=== PATIENT | female | born 1935 | race Caucasian/White ===

== ENCOUNTER 2016-10-20 11:00 | Inpatient (IN) | payer MEDICARE, OTHER ==
[~2016-10-20] VITALS: Ht 165.1 cm; Wt 97.4 kg
--- NOTE | ~2016-10-20 | OR ---
PATIENT'S NAME: TIFFANI FABIAN [facility] AGE: 81 Y [address] ROOM: [place] [address] LOCATION: [facility] ADMIT DATE: 11/03/2016 OR/Procedure Report DISCHARGE DATE: FAMILY PHYSICIAN: Nico Jennings MD ATTENDING PHYSICIAN: JULIO JONES SURGEON: Julio Jones MD SYSTEMS QA ANALYST: 1. LEWIS Adkins. 2. Amrit Harris CST/LEDA. 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 OPERATION: Right total knee arthroplasty with computer navigation. ANESTHESIA: Spinal anesthesia plus adductor canal block plus periarticular local anesthesia (ropivacaine with epinephrine and Toradol). ESTIMATED BLOOD LOSS: Less than 10 mL. DRAIN: None. SPECIMEN: None. COMPLICATIONS: None. IMPLANT SYSTEM: Kris Triathlon. 1. Size 4 right posterior stabilized femoral component. 2. Size 3 universal modular tibial baseplate. 3. An 11 mm posterior stabilized size 3, X3 tibial polyethylene insert. 4. A 29 mm oval X3 patella component. INDICATIONS FOR SURGERY: Tiffani Fabian is a 81-year-old female who presents with advanced right knee degenerative joint disease and associated severely compromised activities of daily living. The patient has decided to proceed with knee replacement after having been thoroughly counseled regarding the associated risks, benefits, and limitations. We have specifically reviewed the risks and implications of infection, deep venous thrombosis, pulmonary embolism, mortality, neurovascular complications, blood transfusion (and associated potential for disease transmission or transfusion reaction), stiffness, instability, mechanical deterioration of the components (due to wear and or loosening), and the potential need for revision. We have also PATIENT'S NAME: TIFFANI FABIAN [facility] AGE: 81 Y [address] ROOM: [place] [address] LOCATION: [facility] ADMIT DATE: 11/03/2016 OR/Procedure Report DISCHARGE DATE: FAMILY PHYSICIAN: Nico Jennings MD ATTENDING PHYSICIAN: JULIO JONES emphasized the importance of active involvement and compliance with post- operative physical therapy as a means of optimizing range of motion and functional recovery. Informed consent has been granted. DESCRIPTION OF PROCEDURE: The patient was positioned supine after administration of anesthesia and prophylactic antibiotics. A well-padded pneumatic tourniquet was placed around the right proximal thigh, and the right lower extremity was prepped and draped with vigilant sterile technique. The patient's name as well as the intended operative side and procedure were confirmed with a verbal time-out involving myself, the circulating nurse, the scrub nurse, and the anesthesiologist. Examination under anesthesia demonstrated a moderate effusion. There were no active skin lesions or masses. There was no erythema. There was no abnormal warmth. Range of motion under anesthesia was from a 6 degree flexion contracture to 130 degrees of flexion. There was no ligamentous insufficiency. The right lower extremity was elevated and exsanguinated with an Esmarch wrap, and the pneumatic tourniquet was inflated to 300mmHg. The knee was approached through a longitudinal midline incision. A medial parapatellar arthrotomy was performed and the patella was everted. Examination of the joint space demonstrated a moderate amount of benign-appearing translucent synovial fluid. There were 2 loose bodies (a 1 cm fragment in the lateral gutter and a 6 mm loose body at the posterior aspect of the lateral compartment). There was no synovitis. Cruciate ligaments were intact. There was a large osteophyte at the lateral femoral condyle. There was a 2 cm diameter region of full- thickness articular cartilage loss at the lateral tibial plateau. There was a 2 x 3 cm diameter region of full-thickness articular cartilage loss at the lateral femoral condyle. There were mild grade 3 degenerative changes at the medial tibial plateau. There was a 1 cm diameter region of moderate grade 3 chondromalacia at the anterior aspect of the medial femoral condyle. There was a 1 cm diameter region of full-thickness articular cartilage loss at the superior central aspect of the femoral trochlea. There was high-grade partial- thickness articular cartilage loss at the inferior half of the lateral facet of the patella. There was grade 2 chondromalacia at the medial facet of the patella. There was mild inner perimeter tearing of the medial meniscus. There was extensive complex degenerative tearing of the remnant of the macerated lateral meniscus. Remnants of the menisci and cruciate ligaments were excised. The [employer] navigation femoral tracker was pinned in place at the distal aspect of the femoral trochlea. Absence of motion between the femur and the tracking device was confirmed manually and visually. Femoral osseous landmarks were PATIENT'S NAME: TIFFANI FABIAN [facility] AGE: 81 Y [address] ROOM: [id number] [place], [place] [address] LOCATION: [facility] ADMIT DATE: 11/03/2016 OR/Procedure Report DISCHARGE DATE: FAMILY PHYSICIAN: Nico Jennings MD ATTENDING PHYSICIAN: JULIO JONES in order to calibrate the computer navigation system. Landmarks included the center of rotation of the ipsilateral hip, the center-point of the distal femur, the femoral AP axis, 57 points on the medial femoral condyle articular surface, and 57 points on the lateral femoral condyle articular surface. The [employer] Hub computer navigation system was subsequently utilized to position the distal femoral resection block such that the distal femoral resection was performed perfectly perpendicular to the femoral mechanical axis. The distal femoral resection was performed with a Audiotoniq oscillating saw. The [employer] Hub computer navigation tibial tracker was pinned in place at the anterior aspect of the tibial plateau. Absence of motion between the tibia and the tracking device was confirmed manually and visually. Tibial osseous landmarks were obtained in order to calibrate the computer navigation system. Landmarks included the center-point of the tibial plateau, the AP tibial axis, 57 points on the medial tibial plateau articular surface, 57 points on the lateral tibial plateau articular surface, the medial malleolus, and the lateral malleolus. The Sy[employer] Hub computer navigation system was subsequently utilized to position the proximal tibial resection block such that the proximal tibial resection was performed perfectly perpendicular to the tibial mechanical axis. The proximal tibial resection was performed with a [employer] oscillating saw. Perpendicularity of the tibial resection with respect to the tibial shaft axis was reconfirmed by inserting a spacer- block attached to an extramedullary guide jessica. External rotation of the anterior and posterior femoral resections was set parallel to the epicondylar axis and carefully adjusted in order to create a rectangular flexion gap. The box resection was performed with a reciprocating saw. Anterior and posterior chamfer resections were performed with the oscillating saw. Posterior condyle osteophytes were excised with an osteotome. All other osteophytes were excised with a rongeur. Resection of all remnants of the menisci was reconfirmed. Flexion and extension gaps were confirmed to be symmetric and well balanced with a spacer-block technique. The patella resection was performed with an oscillating saw such that the composite thickness of the reconstructed patella was equivalent to the thickness of the [place] patella. Patella tracking was confirmed to be optimal. Patella tracking was optimal, and there was no need for a lateral retinacular release. All trial components were removed and all prepared osseous surfaces were thoroughly irrigated with pulsatile saline lavage and dried prior to cementing all three components in a single stage using Kris Simplex cement containing pre-mixed tobramycin. All extruded excess cement was removed. The entire joint space was thoroughly inspected and thoroughly irrigated with PATIENT'S NAME: TIFFANI FABIAN [facility] AGE: 81 Y [address] ROOM: [address] [address] LOCATION: [facility] ADMIT DATE: 11/03/2016 OR/Procedure Report DISCHARGE DATE: FAMILY PHYSICIAN: Nico Jennings MD ATTENDING PHYSICIAN: JULIO JONES bacteriostatic pulsatile saline lavage to assure that there was no residual debris of any sort. Final range of motion was from full extension (with no passive hyperextension) degrees of extension to 130 degrees of flexion. Patella tracking was reconfirmed to be optimal. There was very good anteroposterior stability at 90 degrees of flexion. There was less than 1 mm of medial lift-off to valgus stress in full extension. There was less than 1 mm of lateral lift-off to varus stress in full extension. The arthrotomy was closed with multiple simple and [id number] interrupted #1 Vicryl. Subcutaneous tissues were thoroughly re-irrigated with bacteriostatic pulsatile saline lavage. Subcutaneous tissues were re- approximated with simple buried interrupted #0 Vicryl sutures. The skin was closed with simple buried interrupted 2-0 Vicryl sutures followed by surgical leon. The dressing consisted of Xeroform gauze, 4x4 gauze, ABD pads and two 6-inch Dedrick Wraps. There were no intra-operative complications. It should be noted that the physician's clinic assistant played an active, integral role throughout this entire operation. By providing expert retraction, they greatly facilitated and expedited safe and effective exposure of the distal femur, proximal tibia and patella for preparation and implantation of the components. They were also actively involved in the patient's positioning, prepping and draping, as well as wound closure. MD GENEVA CAMPOS/walter /[id number] d: 11/03/162118 t: 11/05/16 1745, OPERATIVE SUMMARY
--- NOTE | ~2016-10-20 | DS ---
PATIENT'S NAME: ANGEL FABIAN [facility] AGE: 81 Y [address] ROOM: [place] [address] LOCATION: [facility] ADMIT DATE: 11/03/2016 Discharge Summary DISCHARGE DATE: 11/05/2016 FAMILY PHYSICIAN: Nico Jennings MD ATTENDING PHYSICIAN: Julio Jones PRIMARY DIAGNOSIS: Degenerative joint disease of the right knee. SECONDARY DIAGNOSES: 1. Chronic kidney disease, stage 3. 2. Glaucoma. 3. Hyperlipidemia. 4. Hypothyroidism. 5. History of narcolepsy. 6. Diabetes mellitus type 2. PROCEDURE PERFORMED: Right total knee arthroplasty with computer navigation. HISTORY: The patient is a 81-year-old female who presents with advanced right knee degenerative joint disease and associated severely compromised activities of daily living. The patient has decided to proceed with total knee arthroplasty after having been thoroughly counseled regarding the risks, benefits, limitations and alternatives. Please refer to the outpatient clinic notes and admission history and physical for this patient. HOSPITAL COURSE: The patient underwent a right total knee arthroplasty on 11/03/2016 without complications. Spinal anesthesia plus adductor canal block plus periarticular local anesthesia was utilized. The patient received 24 hours of perioperative prophylactic antibiotics and remained hemodynamically stable, neurovascularly intact throughout the entire hospital course. The postoperative prophylactic deep venous thrombosis prophylaxis consisted of Xarelto 10 mg, early mobilization, and pneumatic compression devices. Daily physical therapy for gait training, transfer training range of motion and quadriceps isometric exercises were received. The patient progressed well in physical therapy. On the date of discharge, 11/05/2016, the incision at the knee was healing well and showed no signs of infection. DISPOSITION: Home. DISCHARGE ACTIVITY: The patient is to bear weight as tolerated with range of motion and quadriceps isometric exercises as instructed. The operative extremity is to be elevated at least 90% of the day. There is to be sterile 4x4 gauze dressings to the incision daily. Dr. Jones is to be notified immediately if there is any increased pain, fevers, chills, erythema, or drainage. PATIENT'S NAME: ANGEL FABIAN [facility] AGE: 81 Y [address] ROOM: [address] [address] LOCATION: [facility] ADMIT DATE: 11/03/2016 Discharge Summary DISCHARGE DATE: 11/05/2016 FAMILY PHYSICIAN: Nico Jennings MD ATTENDING PHYSICIAN: Julio Jones DISCHARGE MEDICATIONS: Include: 1. Xarelto 10 mg take 1 tablet p.o. daily for DVT prevention. 2. [place] 5/325 take 1-2 tablets p.o. every 4 hours as needed for pain. FOLLOWUP: Followup date is scheduled for 11/10/2016 for initial postoperative evaluation. LEWIS LARA FOR JULIO JONES MD TLB/modl /[id number] d: 11/22/16 0045 t: 11/26/16 1054, DISCHARGE SUMMARY
[~2016-10-20 11:00] MED LIST: AMLODIPINE BESY10 MG PO; ASPIRIN LO-DOSE81 MG PO; IRBESARTAN-HCT1 EAC1 PO; LEVOTHROID (S100 MCG PO; METHYLPHENIDATE40 M1 PO; PRAVACHOL80 MG PO; TIMOPTIC 0.5%15 ML OPHTH; TRAVATAN Z OPH2.5 ML OPHTH
[2016-11-03] MEDS ORDERED: VOLTAREN 1% GE100 GM TOP (15:34)
--- NOTE | 2016-11-03 17:07 | NUR ---
Significant Event: Pt arrived from PACU drowsy, Pt has small bile emesis immediately prior to OR, Anestesia suctioned bile and pt coughed up the rest, LS remain clear upper, cl/dim hardy lower, O2 weaned from 2L to 1L at 1700, VSS, 1900 is 2nd hourly, spinal-starting to do ankle pumps at 1700, Denies pain, [place] given at 1705. Follow up: Pt has Hx of looses stools. Monitor pain
--- NOTE | 2016-11-04 03:46 | NUR ---
Significant Event: Dressing is clean, dry and intact. CSM WNL. Voids without difficulty. 1 assist with transfers. [place] at 0308. On 2 L of oxygen nasal cannula. Accu check. Follow up:
--- NOTE | 2016-11-04 10:10 | NUR ---
Introduced self/role to patient and her daughter. She plans to go home with her daughter. She can't think of any additional DME she will need. Denied any barriers to getting home or at home. She is planning to discharge tomorrow. Added my name to her marker board, will continue to follow.
--- NOTE | 2016-11-04 14:49 | NUR ---
Significant Event: Ambulates with one assist and walker. Dressing C/D/I. Ez wrap ice at all times. Voids without difficulty. [place] 1 tab for pain control. Titrated to room air. Accuchecks ACHS. Plans to dismiss to home tomorrow. Follow up:
--- NOTE | 2016-11-05 04:30 | NUR ---
Significant Event: DRESSING IS CLEAN, DRY AND INTACT. CSM WNL. VOIDS WITHOUT DIFFICULTY. 1 ASSIST WITH TRANSFERS. NORCO AT 0048. POSSIBLE DISMISSAL. ACCU CHECK. Follow up:
[2016-11-05] MEDS ORDERED: COLACE100 MG PO (11:05)
[2016-11-05] MEDS ORDERED: NORCO 5-325 TA1 EACH PO (11:09)
[2016-11-05] MEDS ORDERED: XARELTO10 MG PO (11:09)
[2016-11-05] MEDS ORDERED: MIRALAX17 GM PO (11:25)
--- NOTE | 2016-11-05 16:41 | NUR ---
Dismissal Note: Ambulates with SBA and walker. Dressing changed, leon intact. Ez wrap ice at all times. Voids without difficutly. Refused suppository, had large BM. [place] 1 tab for pain control. Esme education given with dismissal instructions, patient and family state understanding. Dismissed to home with daughter per private vehicle.
== END 2016-11-05 14:50 | disposition disaster alternative care site (69) | DRG 470 ==
LOC: G3N 11-03 09:28
PROVIDERS: ADMIT Orthopaedic Surgery
PROC: 0SRC0J9 Replacement of Right Knee Joint with Synthetic Substitute, Cemented, Open Approach (ICD-10-PCS; principal; 2016-11-03)
DX: M17.10 Unilateral primary osteoarthritis, unspecified knee (principal); E11.22 Type 2 diabetes mellitus with diabetic chronic kidney disease; N18.3 Chronic kidney disease, stage 3 (moderate); I12.9 Hypertensive chronic kidney disease with stage 1 through stage 4 chronic kidney disease, or unspecified chronic kidney disease; E66.9 Obesity, unspecified; Z68.33 Body mass index [BMI] 33.0-33.9, adult; E78.5 Hyperlipidemia, unspecified; E03.9 Hypothyroidism, unspecified
CPT/HCPCS: C1713; C1776; J0690; J1100; J1885; J2001; J2250; J2405; J2795; J7030; J7120

== ENCOUNTER → 2016-10-23 | Outpatient (CLI) | payer OTHER, MEDICARE ==
[~2016-10-23] MED LIST changes: +COLACE100 MG PO; +MIRALAX17 GM PO; +NORCO 5-325 TA1 EACH PO; +VOLTAREN 1% GE100 GM TOP; +XARELTO10 MG PO
== END | disposition disaster alternative care site (69) ==
LOC: GNJRC 10:55
DX: Z01.812 Encounter for preprocedural laboratory examination (principal); M17.11 Unilateral primary osteoarthritis, right knee